=== PATIENT | female | born 2000 | race Caucasian/White ===

== ENCOUNTER 2020-07-26 19:29 | Emergency (ER) | payer OTHER ==
[~2020-07-26] VITALS: Ht 160 cm; Wt 63.6 kg
--- NOTE | 2020-07-26 20:25 | PHYS DOC ---
General Adult EDM: Chief Complaint: MECHANICAL FALL HPI: HPI: Healthy 20-year-old female who presents for evaluation of right iliac and pubic symphysis pain. The patient was playing flag football prior to arrival, jumped in the air but landed on her right hip. She states that this sent a "shock" of pain that progressed medially to the pubic symphysis. She states that her pain is dull in nature, and somewhat improved with standing, and worsened with ambulation and sitting. No other areas of pain noted. Review of Systems: Review of Systems: Gen: No fever, chills. CV: No CP. Resp. No SOB, cough. GI: No abd pain, N/V. : No dysuria, hematuria. Neuro: No DÍAZ, dizziness, weakness. MSK: No back pain. Reports pelvic pain. Skin: No acute rash or lesion. Remainder of systems reviewed and negative unless otherwise specified. Physical Exam: PE: Gen: NAD. Well nourished. Head: NC/AT. Eyes: No scleral icterus. No conjunctival injection. ENT: MMM. Neck: Supple. NT. CV: RRR. Peripheral pulses intact. Resp: CTAB. Abd: Soft. NT. ND. Minimal tenderness without overlying skin changes at the pubic symphysis. MSK: No peripheral cyanosis. No edema. Neuro: A&Ox3. Strength & sensation grossly intact throughout. Skin. Warm. Dry. Psych: Appropriate mood & affect. EKG: EKG: [] Radiology/Procedures: Radiology/Procedures: PROCEDURE: PELVIS One view pelvis HISTORY: Pubic symphysis pain status post fall AP view supine pelvis The visualized osseous structures appear normal. IMPRESSION: No acute findings. Electronically signed by: Paul Love III, MD (07/26/2020 8:52 PM) [facility] DICTATED AND SIGNED BY: PAUL LOVE III, MD Heart Score: C/O Chest Pain: N/A Risk Factors: Risk Factors: DM, Current or recent (<one month) smoker, HTN, HLP, family history of CAD, obesity. Risk Scores: Score 0 - 3: 2.5% MACE over next 6 weeks - Discharge Home Score 4 - 6: 20.3% MACE over next 6 weeks - Admit for Clinical Observation Score 7 - 10: 72.7% MACE over next 6 weeks - Early Invasive Strategies Course & Med Decision Making: Course & Med Decision Making Pertinent Labs and Imaging studies reviewed. (See chart for details) In summary, 20-year-old female who presents for evaluation of right iliac and pu bic symphysis pain while playing flag football. Unremarkable physical examination without overlying skin changes. No antalgia. Plain film of the pelvis negative for acute osseous abnormality. Remains well-appearing nontoxic. Likely pelvic contusion. We discharged home to outpatient follow-up. Advised to take Tylenol Motrin as needed for pain. Return precautions given. Dragon Disclaimer: Dragon Disclaimer: This electronic medical record was generated, in whole or in part, using a voice recognition dictation system. Departure Departure: Impression: Primary Impression: Pelvic contusion Disposition: 01 DC HOME SELF CARE/HOMELESS Condition: STABLE Referrals: PCP,NATACHA (PCP) Patient Instructions: Contusion, [id number] Additional Instructions: Take tylenol or motrin as needed for pain. CESILIA PORTILLO DO Jul 26, 2020 20:25
--- NOTE | 2020-07-26 20:54 | RAD ---
One view pelvis HISTORY: Pubic symphysis pain status post fall AP view supine pelvis The visualized osseous structures appear normal. IMPRESSION: No acute findings. Electronically signed by: Hamilton Love III, MD (07/26/2020 8:52 PM) [facility]
[2020-07-26 21:25] VITALS: BP 128/70
== END 2020-07-26 21:30 | disposition home or self-care (01) ==
LOC: ER 19:29
DX: S30.0XXA Contusion of lower back and pelvis, initial encounter (principal); W17.89XA Other fall from one level to another, initial encounter; Y93.62 Activity, american flag or touch football; Y92.89 Other specified places as the place of occurrence of the external cause; Y99.8 Other external cause status
CPT/HCPCS: 72170; 99284